=== PATIENT | female | born 1960 | race African-American/Black ===

== ENCOUNTER 2017-01-27 11:44 | Emergency (ER) | payer MEDICAID ==
[~2017-01-27] VITALS: Ht 180.3 cm; Wt 142.9 kg
[~2017-01-27 11:44] MED LIST: ATIVAN1 MG ORAL; ATIVAN2 MG/ML IV; BACTRIM DS TAB1 EAC1 ORAL; CEPHALEXIN500 M1 ORAL; CIPROFLOXACIN500 M2 ORAL; CROMOLYN SODIUM10 ML BOTH EYES; DEPAKOTE ER250 MG ORAL; DIVALPROEX SOD500 M2 ORAL; DIVALPROEX SOD500 MG; DUONEB 0.5-3(2.53 ML HHN; HEPARIN SO5000 UNIT2 SUBQ; KEPPRA XR750 MG ORAL; KEPPRA500 M3 ORAL; KEPPRA500 MG ORAL; KLONOPIN0.5 MG ORAL; LEVETIRACETAM1000 MG ORAL; LEVOTHYROXINE100 MCG ORAL; LEVOTHYROXINE25 MCG ORAL; LEVOTHYROXINE50 MCG; LEVOTHYROXINE88 MCG ORAL; MIRALAX17 GM ORAL; MULTIVITAMINS1 EAC2 ORAL; Patient Own Medication ORAL; QUETIAPINE FUMA25 MG ORAL; RANITIDINE HCL150 MG ORAL; SERTRALINE HCL25 MG ORAL; SYNTHROID75 MCG; SYNTHROID88 MCG ORAL; TRAZODONE HCL150 MG ORAL; TYLENOL EXTRA500 MG ORAL; VIMPAT150 MG PO; ZOLPIDEM TARTRA10 MG ORAL; ZOLPIDEM TARTRAT5 MG
[2017-01-27 11:45] VITALS: BP 141/81
--- NOTE | 2017-01-27 12:30 | Emergency Room Report ---
History of Present Illness General Chief Complaint: Seizure Source: Patient, EMS Present Illness HPI 48-year-old female history of seizures presenting with seizure. EMS reports that patient was in parking LOC, noted to have "focal" seizures, However no other history able to be obtained. Patient states that she last took her temperature this morning. Patient states that she is on Keppra however was told not to take valproic acid anymore. She is otherwise been compliant with her medications. States that she's been eating drinking normally. No chest pain shortness of breath nausea vomiting. Patient states her last seizure was about 2 months ago. Patient has been to the emergency room multiple times before for seizures Bit her tongue, no urinary or fecal incontinence Allergies: Coded Allergies: ASPIRIN (Unverified Allergy, Unknown, 07/31/14) NO KNOWN DRUG ALLERGIES (Unverified Allergy, Unknown, 11/24/14) Patient History Past Medical History: see triage record Past Surgical History: none Pertinent Family History: none Last Menstrual Period: na Reviewed Nursing Documentation: PMH: Agreed, PSxH: Agreed Nursing Documentation-PMH Past Medical History: No History, Except For Hx Cardiac Problems: No Hx Pacemaker: No - HYPOTHYROIDSM Hx Cancer: No Hx Gastrointestinal Problems: No Hx Neurological Problems: Yes Hx Seizures: Yes Review of Systems All Other Systems: negative except mentioned in HPI Physical Exam Vital Signs Date Time Temp Pulse Resp B/P (MAP) Pulse Ox O2 Delivery O2 Flow Rate FiO2 01/27/17 11:35 98.8 81 18 141/81 98 Room Air Sp02 EP Interpretation: reviewed, normal General Appearance: normal inspection, well appearing, no apparent distress, alert, GCS 15, non-toxic Head: normocephalic, atraumatic Eyes: bilateral eye normal inspection, bilateral eye PERRL, bilateral eye EOMI ENT: normal pharynx, normal voice, moist mucus membranes, other - +tongue bite Neck: normal inspection, full range of motion, supple Respiratory: normal inspection, lungs clear, normal breath sounds, no respiratory distress, no retraction, no wheezing, speaking full sentences, chest symmetrical Cardiovascular #1: normal inspection, regular rate, rhythm, no edema, normal capillary refill Cardiovascular #2: 2+ radial (R), 2+ radial (L) Gastrointestinal: normal inspection, non tender, soft, non-distended, no guarding Musculoskeletal: normal inspection, back normal, normal range of motion, non- tender Neurologic: normal inspection, alert, oriented x3, responsive, 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 dehydration vs. medication non compliance Electrolyte disturbance: hypoglycemia vs. hyponatremia vs. hypocalcemia vs. hypomagnesemia Cardiac: Arrythmia/acs Intracranial pathology: intracranial bleed, stroke Tox Plan: BGM EKG Labs, seizure medication levels, tox labs ER course: No further seizures in ED Has been stable during ED stay. AOx4, no neurological signs or symptoms received her dose of keppra in eD Disposition: Patient will be discharged to home. Patient instructed to be compliant with anti seizure medications Patient is to follow up with their primary care doctor in 5 days and neurologist within 1 week. Strict return precautions discussed such as severe headache, fever, chills, neck pain, prolonged or increased frequency of seizures. Patient verbalized understanding and agrees with plan. EKG Diagnostic Results EP Interpretation: Yes Rate: normal Rhythm: NSR ST Segments: No acute changes ASA given to patient: no Rhythm Strip EP Interpretation: Yes Rate: 65 Rhythm: NSR, no PVCs, no ectopy Chest X-ray CXR: Ordered: Yes 1 view Indication: Altered mental status EP interpretation: Yes Interpretation: No consolidation, no effusion, no PTX, no acute cardiopulmonary disease Impression: No acute disease Electronically signed by Mila Cosby MD Laboratory Tests Test 01/27/17 13:35 01/27/17 15:00 White Blood Count 6.0 K/UL (4.8-10.8) Red Blood Count 4.08 M/UL (4.20-5.40) L Hemoglobin 12.0 G/DL (12.0-16.0) Hematocrit 37.8 % (37.0-47.0) Mean Corpuscular Volume 92 FL (80-99) Mean Corpuscular Hemoglobin 29.4 PG (27.0-31.0) Mean Corpuscular Hemoglobin Concent 31.8 G/DL (32.0-36.0) L Red Cell Distribution Width 13.2 % (11.6-14.8) Platelet Count 242 K/UL (150-450) Mean Platelet Volume 7.4 FL (6.5-10.1) Neutrophils (%) (Auto) 66.3 % (45.0-75.0) Lymphocytes (%) (Auto) 21.1 % (20.0-45.0) Monocytes (%) (Auto) 9.2 % (1.0-10.0) Eosinophils (%) (Auto) 2.5 % (0.0-3.0) Basophils (%) (Auto) 1.0 % (0.0-2.0) Sodium Level 139 MMOL/L (136-145) Potassium Level 3.9 MMOL/L (3.5-5.1) Chloride Level 106 MMOL/L (98-107) Carbon Dioxide Level 25 MMOL/L (21-32) Anion Gap 9 mmol/L (5-15) Blood Urea Nitrogen 13 mg/dL (7-18) Creatinine 0.9 MG/DL (0.55-1.30) Estimate Glomerular Filtration Rate > 60 mL/min (>60) Glucose Level 96 MG/DL (74-106) Calcium Level 9.4 MG/DL (8.5-10.1) Total Bilirubin 0.2 MG/DL (0.2-1.0) Aspartate Amino Transferase (AST) 19 U/L (15-37) Alanine Aminotransferase (ALT) 23 U/L (12-78) Alkaline Phosphatase 88 U/L (46-116) Total Creatine Kinase 79 U/L (26-308) Troponin I 0.005 ng/mL (0.000-0.056) Total Protein 7.6 G/DL (6.4-8.2) Albumin 3.5 G/DL (3.4-5.0) Globulin 4.1 g/dL Albumin/Globulin Ratio 0.9 (1.0-2.7) L Valproic Acid Level < 3 MCG/ML (50-100) L Urine Color Pale yellow Urine Appearance Clear Urine pH 6 (4.5-8.0) Urine Specific [place] 1.015 (1.005-1.035) Urine Protein Negative (NEGATIVE) Urine Glucose (UA) Negative (NEGATIVE) Urine Ketones Negative (NEGATIVE) Urine Occult Blood 1+ (NEGATIVE) H Urine Nitrite Negative (NEGATIVE) Urine Bilirubin Negative (NEGATIVE) Urine Urobilinogen Normal MG/DL (0.0-1.0) Urine Leukocyte Esterase Negative (NEGATIVE) Urine RBC 0-2 /HPF (0 - 2) Urine WBC 0-2 /HPF (0 - 2) Urine Squamous Epithelial Cells Few /LPF (NONE/OCC) Urine Bacteria Few /HPF (NONE) Laboratory Tests Test 01/27/17 13:35 White Blood Count 6.0 K/UL (4.8-10.8) Red Blood Count 4.08 M/UL (4.20-5.40) L Hemoglobin 12.0 G/DL (12.0-16.0) Hematocrit 37.8 % (37.0-47.0) Mean Corpuscular Volume 92 FL (80-99) Mean Corpuscular Hemoglobin 29.4 PG (27.0-31.0) Mean Corpuscular Hemoglobin Concent 31.8 G/DL (32.0-36.0) L Red Cell Distribution Width 13.2 % (11.6-14.8) Platelet Count 242 K/UL (150-450) Mean Platelet Volume 7.4 FL (6.5-10.1) Neutrophils (%) (Auto) 66.3 % (45.0-75.0) Lymphocytes (%) (Auto) 21.1 % (20.0-45.0) Monocytes (%) (Auto) 9.2 % (1.0-10.0) Eosinophils (%) (Auto) 2.5 % (0.0-3.0) Basophils (%) (Auto) 1.0 % (0.0-2.0) Sodium Level 139 MMOL/L (136-145) Potassium Level 3.9 MMOL/L (3.5-5.1) Chloride Level 106 MMOL/L (98-107) Carbon Dioxide Level 25 MMOL/L (21-32) Anion Gap 9 mmol/L (5-15) Blood Urea Nitrogen 13 mg/dL (7-18) Creatinine 0.9 MG/DL (0.55-1.30) Estimate Glomerular Filtration Rate > 60 mL/min (>60) Glucose Level 96 MG/DL (74-106) Calcium Level 9.4 MG/DL (8.5-10.1) Total Bilirubin 0.2 MG/DL (0.2-1.0) Aspartate Amino Transferase (AST) 19 U/L (15-37) Alanine Aminotransferase (ALT) 23 U/L (12-78) Alkaline Phosphatase 88 U/L (46-116) Total Creatine Kinase 79 U/L (26-308) Troponin I 0.005 ng/mL (0.000-0.056) Total Protein 7.6 G/DL (6.4-8.2) Albumin 3.5 G/DL (3.4-5.0) Globulin 4.1 g/dL Albumin/Globulin Ratio 0.9 (1.0-2.7) L Valproic Acid Level < 3 MCG/ML (50-100) L Last Vital Signs Date Time Temp Pulse Resp B/P (MAP) Pulse Ox O2 Delivery O2 Flow Rate FiO2 01/27/17 11:45 63 24 Room Air 01/27/17 11:45 98.8 141/81 98 Disposition: HOME, SELF-CARE Condition: Improved Referrals: NON PHYSICIAN (PCP) Mila Cosby M.D. Jan 27, 2017 12:30
[2017-01-27] MEDS ORDERED: levETIRAcetam 500mg vial IV ONE (12:44)
[2017-01-27] MEDS ORDERED: levETIRAcetam 1,500 MG in D5W 95 ML IVPB ONE (12:45)
--- NOTE | 2017-01-27 13:08 | Diagnostic Imaging Report ---
Indication: Chest pain Technique: One view of the chest Comparison: 11/24/2014 Findings: The heart is borderline enlarged. This is a new finding. Lungs and pleural spaces are clear. Impression: Borderline cardiomegaly No acute process
[2017-01-27 13:52] LABS: EOSINOPHILS % (AUTO) 2.5 % (0.0-3.0); LYMPHOCYTES % (AUTO) 21.1 % (20.0-45.0); MEAN CORPUSCULAR HEMOGLOBIN 29.4 PG (27.0-31.0); MEAN CORPUSCULAR HGB CONC 31.8 G/DL (32.0-36.0); MEAN CORPUSCULAR VOLUME 92 FL (80-99); MEAN PLATELET VOLUME 7.4 FL (6.5-10.1); MONOCYTES % (AUTO) 9.2 % (1.0-10.0); NEUTROPHILS % (AUTO) 66.3 % (45.0-75.0); PLATELET COUNT 242 K/UL (150-450); RED BLOOD COUNT 4.08 M/UL (4.20-5.40); RED CELL DISTRIBUTION WIDTH 13.2 % (11.6-14.8)
[2017-01-27 14:08] LABS: ALANINE AMINOTRANSFERASE 23 U/L (12-78); ALBUMIN/GLOBULIN RATIO 0.9 (1.0-2.7); ANION GAP 9 mmol/L (5-15); ASPARTATE AMINO TRANSFERASE 19 U/L (15-37); CALCIUM 9.4 MG/DL (8.5-10.1); CARBON DIOXIDE 25 MMOL/L (21-32); CHLORIDE 106 MMOL/L (98-107); CREATININE 0.9 MG/DL (0.55-1.30); GLOMERULAR FILTRATION RATE > 60 mL/min (>60); POTASSIUM 3.9 MMOL/L (3.5-5.1); SODIUM 139 MMOL/L (136-145); TOTAL PROTEIN 7.6 G/DL (6.4-8.2)
[2017-01-27 14:10] LABS: VALPROIC ACID < 3 MCG/ML (50-100)
[2017-01-27 14:30] VITALS: BP 141/90
[2017-01-27 15:28] LABS: APPEARANCE,URINE CLEAR; KETONES,URINE NEGATIVE (NEGATIVE); LEUKOCYTE ESTERASE ,URINE NEGATIVE (NEGATIVE); NITRITE,URINE NEGATIVE (NEGATIVE); PH,URINE 6 (4.5-8.0); PROTEIN,URINE NEGATIVE (NEGATIVE); UROBILINOGEN,URINE NORMAL MG/DL (0.0-1.0)
[2017-01-27 15:51] LABS: RBC,URINE 0-2 /HPF (0 - 2); WBC,URINE 0-2 /HPF (0 - 2)
[2017-01-27 15:52] LABS: BACTERIA,URINE FEW /HPF; SQUAMOUS EPITHELIAL CELL,UR FEW /LPF (NONE/OCC)
[2017-01-27 16:17] VITALS: BP 153/97
[2017-01-27 19:00] VITALS: BP 153/93
--- NOTE | 2017-01-29 13:31 | Cardiology Report ---
APPROVED REPORT EKG Measurement Heart [id number] Normal sinus rhythm Normal ECG
== END 2017-01-27 19:00 | disposition home or self-care (01) ==
LOC: EDBD 11:44 → EMR 12:15
DX: G40.909 Epilepsy, unspecified, not intractable, without status epilepticus (principal); E03.9 Hypothyroidism, unspecified; Z79.899 Other long term (current) drug therapy; Z88.6 Allergy status to analgesic agent
CPT/HCPCS: 36415; 71010; 80053; 80164; 81003; 82550; 84484; 85025; 93005; 96365; 99284; J1953

== ENCOUNTER 2017-09-18 13:26 | Emergency (ER) | payer MEDICAID, OTHER ==
[~2017-09-18] VITALS: Ht 180.3 cm; Wt 147.4 kg
[2017-09-18 13:46] VITALS: BP 110/50
[2017-09-18] MEDS ORDERED: Acetaminophen 500mg (ES) tab ORAL ONE (14:30)
--- NOTE | 2017-09-18 15:17 | Diagnostic Imaging Report ---
EXAM: CT Head Without Intravenous Contrast CLINICAL HISTORY: Seizure TECHNIQUE: Axial computed tomography images of the head/brain without intravenous contrast. CTDI is 70.53 mGy and DLP is 1298 mGy-cm. One or more of the following dose reduction techniques were used: automated exposure control, adjustment of the mA and/or kV according to patient size, use of iterative reconstruction technique. COMPARISON: CT head dated 09/11/14 FINDINGS: Brain: Unremarkable. No evidence of acute intracranial hemorrhage. No significant white matter disease. No edema. No mass effect or midline shift. Ventricles: Unremarkable. No ventriculomegaly. Bones/joints: Unremarkable. No acute fracture. Soft tissues: Unremarkable. Sinuses: Unremarkable as visualized. No acute sinusitis. Mastoid air cells: Unremarkable as visualized. No mastoid effusion. IMPRESSION: Unremarkable noncontrast CT of the head/brain.
[2017-09-18 15:18] LABS: APPEARANCE,URINE CLEAR; BILIRUBIN, URINE NEGATIVE (NEGATIVE); GLUCOSE, URINE (UA) NEGATIVE (NEGATIVE); KETONES,URINE NEGATIVE (NEGATIVE); LEUKOCYTE ESTERASE ,URINE 1+ (NEGATIVE); NITRITE,URINE NEGATIVE (NEGATIVE); PH,URINE 6.5 (4.5-8.0); PROTEIN,URINE 1+ (NEGATIVE); UROBILINOGEN,URINE 1 MG/DL (0.0-1.0)
--- NOTE | 2017-09-18 15:18 | Diagnostic Imaging Report ---
EXAM: XR Chest, 1 View CLINICAL HISTORY: COUGH TECHNIQUE: Frontal view of the chest. COMPARISON: Chest x-ray dated 01/27/17 FINDINGS: Lungs: Unremarkable. The lungs appear clear. No confluent pulmonary opacities. Pleural space: Unremarkable. No pneumothorax. Heart: Unremarkable. No cardiomegaly. Mediastinum: Unremarkable. Bones/joints: Unremarkable. IMPRESSION: Unremarkable chest x-ray.
[2017-09-18 15:24] LABS: COLOR,URINE YELLOW
[2017-09-18 15:27] LABS: BASOPHILS % (AUTO) 0.8 % (0.0-2.0); EOSINOPHILS % (AUTO) 1.9 % (0.0-3.0); HEMATOCRIT 40.6 % (37.0-47.0); HEMOGLOBIN 12.7 G/DL (12.0-16.0); LYMPHOCYTES % (AUTO) 30.6 % (20.0-45.0); MEAN CORPUSCULAR VOLUME 88 FL (80-99); MONOCYTES % (AUTO) 8.8 % (1.0-10.0); NEUTROPHILS % (AUTO) 57.9 % (45.0-75.0); PLATELET COUNT 261 K/UL (150-450); RED BLOOD COUNT 4.64 M/UL (4.20-5.40); RED CELL DISTRIBUTION WIDTH 12.8 % (11.6-14.8); WHITE BLOOD COUNT 5.9 K/UL (4.8-10.8)
--- NOTE | 2017-09-18 15:29 | Emergency Room Report ---
History of Present Illness General Chief Complaint: Pain Source: Medical Record, EMS Present Illness HPI 57-year-old female patient presents to ER brought [facility] for cough and generalized bodyaches. 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 Denies cardiovascular history. Reports no recent seizure. Patient has a history of schizophrenia. Patient currently being treated with Keppra for seizures. Patient reports that she had 2 seizures and has chest pain earlier today, reports mild symptom improvement since that time. Patient is a poor historian. Denies fever, shortness of breath, abdominal pain. denies history of cancer or immobilization. denies calf or neck pain. Allergies: Coded Allergies: ASPIRIN (Unverified Allergy, Unknown, 07/31/14) NO KNOWN DRUG ALLERGIES (Unverified Allergy, Unknown, 11/24/14) Patient History Past Medical History: see triage record Reviewed Nursing Documentation: PMH: Agreed; PSxH: Agreed Nursing Documentation-PMH Hx Pacemaker: No - HYPOTHYROIDSM Hx Cancer: No Hx Gastrointestinal Problems: No Hx Neurological Problems: Yes Hx Seizures: Yes Review of Systems All Other Systems: negative except mentioned in HPI Physical Exam Vital Signs Date Time Temp Pulse Resp B/P (MAP) Pulse Ox O2 Delivery O2 Flow Rate FiO2 09/18/17 13:16 98.4 66 18 110/50 99 Room Air 98.4 Sp02 EP Interpretation: reviewed, normal General Appearance: well appearing, no apparent distress, alert, GCS 15, non- toxic Head: normocephalic, atraumatic Eyes: bilateral eye normal inspection, bilateral eye PERRL ENT: hearing grossly normal, normal pharynx, no angioedema, normal voice, uvula midline, moist mucus membranes Neck: full range of motion, no meningismus Respiratory: lungs clear, normal breath sounds, no rhonchi, no respiratory distress, no accessory muscle use, no wheezing, speaking full sentences Cardiovascular #2: 2+ radial (R), 2+ radial (L) Gastrointestinal: non tender, soft, no mass, non-distended, no guarding, no rebound Musculoskeletal: back normal, digits/nails normal, gait/station normal, normal range of motion, non-tender, no calf tenderness, Ivet's Sign negative Neurologic: alert, oriented x3, responsive, motor strength/tone normal, sensory intact Psychiatric: mood/affect normal Lymphatic: no adenopathy Medical Decision Making PA Attestation Dr. Moe is my supervising Physician whom patient management has been discussed with. Diagnostic Impression: Primary Impression: Cough ER Course Pt. presents to the ED c/o cough and possible seizure BIB ambulance. Ddx considered but are not limited to seizure disorder, drug intoxication, [place], arrhythmia. Began workup for seizure disorder. Order labs and IV fluids. Ivet sign negative, low suspicion for PE for the Well's criteria. Vital signs: are WNL, pt. is afebrile ED COURSE: UA negative for nitrites, low suspicion for UTI. Does not require antibiotic treatment at this time. UDS positive for benzos, patient currently taking lorazepam, likely resulting in positive result. remainder of urine drug screen negative. Acetaminophen not elevated Levetiracetam results sent out. CBC and CMP unremarkable Troponin negative EKG negative for ST elevations or arrhythmia Chest x-ray negative for acute disease CT head negative x-ray, EKG and labs did not indicate any cardiac pathology at this time, chest pain likely related to patient complaining of cough. Low suspicion for PE per well's criteria at this time, patient okay for discharge home we'll provide patient with Tylenol for pain symptoms. patient observed by nurse stating "I have having a seizure". 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 do not believe patient had seizure, patient stable at this time , no focal neuro deficits, talking without difficulty. patient stable for discharge to home. Patient informed must take medications to prevent seizure episodes. Patient instructed to follow up with neurologist for further treatment and assessment. Patient states understanding and agreement to treatment plan. Patient is at baseline mental status, able to ambulate and in no acute distress , hemodynamically stable. Patient is stable for discharge home. DISCHARGE: Rx provided for Tylenol for pain At this time pt is stable for d/c to home. Patient is resting comfortably, in no acute distress, nontoxic appearing, talking without difficulty. Patient to take medications as instructed Will provide with patient care instructions and any necessary prescriptions. Care plan and follow-up instructions provided. Patient instructed to follow-up with primary care provider in 3 - 5 days. Patient questions asked and answered. Patient reports understanding and agreement to treatment plan. ER precautions given. Patient instructed to return to ER immediately for any new or worsening of symptoms including but not limited to increasing SOB, persistent fever. - Please note that this Emergency Department Report was dictated using [employer] quality assurance analyst technology software, occasionally this can lead to erroneous entry secondary to interpretation by the dictation equipment. EKG Diagnostic Results Rate: normal Rhythm: NSR ST Segments: no acute changes PA Scribe Mumtaz Tanner PA-C Rhythm Strip Diag. Results EP Interpretation: yes Rate: 63 Rhythm: NSR, no PVC's, no ectopy PA Scribe Text Robb Tanner PA-C Chest X-Ray Diagnostic Results Chest X-Ray Diagnostic Results : Chest X-Ray Ordered: Yes # of Views/Limited/Complete: 1 View Indication: Chest Pain EP Interpretation: Yes PA Xray: Interpretation reviewed, by supervising MD, and agrees with findings. Interpretation: no consolidation, no effusion, no pneumothorax, no acute cardiopulmonary disease Impression: No acute disease DAVID Scribe Mumtaz Tanner PA-C CT/MRI/US Diagnostic Results CT/MRI/US Diagnostic Results : Imaging Test Ordered: CT head Impression Unremarkable noncontrast CT of the head/brain. Last Vital Signs Date Time Temp Pulse Resp B/P (MAP) Pulse Ox O2 Delivery O2 Flow Rate FiO2 09/18/17 14:31 98.4 09/18/17 13:46 74 18 110/50 99 Room Air Disposition: HOME, SELF-CARE Condition: Stable Scripts Acetaminophen* (TYLENOL EXTRA STRENGTH*) 500 Mg Tablet 500 MG ORAL Q8H PRN for Prn Headache/Temp > 101, #30 TAB 0 Refills Prov: Arben Tanner 09/18/17 Patient Instructions: Cough, Adult, [id number] Additional Instructions: Followup with primary care provider in 3 -5 days. Follow-up with neurologist and mental health individual. Take medications as directed. Patient questions asked and answered. ER precautions given, patient instructed to return to ER immediately for any new or worsening of symptoms. Arben Tanner Sep 18, 2017 15:29
[2017-09-18 15:57] LABS: ANION GAP 6 mmol/L (5-15); BLOOD UREA NITROGEN 14 mg/dL (7-18); CALCIUM 9.2 MG/DL (8.5-10.1); CARBON DIOXIDE 29 MMOL/L (21-32); CHLORIDE 105 MMOL/L (98-107); CREATININE 1.1 MG/DL (0.55-1.30); POTASSIUM 3.8 MMOL/L (3.5-5.1); SODIUM 140 MMOL/L (136-145)
[2017-09-18 16:01] LABS: ALANINE AMINOTRANSFERASE 23 U/L (12-78); ALBUMIN 3.6 G/DL (3.4-5.0); ALBUMIN/GLOBULIN RATIO 0.8 (1.0-2.7); ALKALINE PHOSPHATASE 98 U/L (46-116); ASPARTATE AMINO TRANSFERASE 20 U/L (15-37); BILIRUBIN,TOTAL 0.2 MG/DL (0.2-1.0)
[2017-09-18] MEDS ORDERED: TYLENOL EXTRA500 MG ORAL (16:31)
[2017-09-18 16:40] VITALS: BP 112/60
[2017-09-18 17:18] VITALS: BP 112/60
--- NOTE | 2017-09-22 15:26 | Cardiology Report ---
APPROVED REPORT EKG Measurement Heart [id number] Normal sinus rhythm Normal ECG
== END 2017-09-18 17:22 | disposition home or self-care (01) ==
LOC: EDBD 13:26 → EMR 14:00
DX: R05 Cough (principal); R52 Pain, unspecified; R56.9 Unspecified convulsions; E11.9 Type 2 diabetes mellitus without complications; F20.9 Schizophrenia, unspecified; Z88.6 Allergy status to analgesic agent
CPT/HCPCS: 36415; 70450; 71045; 80053; 80299; 80307; 80329; 81003; 84484; 85025; 93005; 99284

== ENCOUNTER 2017-12-28 15:13 | Emergency (ER) | payer MEDICAID ==
[~2017-12-28] VITALS: Ht 180.3 cm; Wt 136.1 kg
[2017-12-28 15:23] VITALS: BP 111/69
[2017-12-28] MEDS ORDERED: Sodium Chloride 500ML 500 ML IV ONE (15:27)
[2017-12-28] MEDS ORDERED: levETIRAcetam 500 MG in D5W 110 ML IV ONE (15:30)
[2017-12-28] MEDS ORDERED: Valproate Sodium INJ 500 MG in NS 55 ML IV ONE (15:30)
[2017-12-28] MEDS ORDERED: LORazepam Inj 2mg/ml 1ml IV ONE ×2 (15:30)
--- NOTE | 2017-12-28 15:55 | Emergency Room Report ---
History of Present Illness General Chief Complaint: Multiple Trauma/Fall Source: Patient Present Illness HPI Patient presents emergency department today status post seizure. Patient has a history of seizures and takes Keppra and Depakote. Patient states that she's compliant with medications. Patient had a seizure today she when she fell backwards hitting her hip as well as her head. She denies loss consciousness. She complains a headache and hip pain. She has difficulty ambulating because of the pain. She also complains generalized weakness. No other complaint or noted. Symptoms noted to be severe. And occurred shortly prior to arrival. 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 No other associated signs and symptoms. No other complaints were noted. Allergies: Coded Allergies: ASPIRIN (Unverified Allergy, Unknown, 07/31/14) NO KNOWN DRUG ALLERGIES (Unverified Allergy, Unknown, 11/24/14) Patient History Past Medical History: seizures Past Surgical History: none Pertinent Family History: none Social History: Denies: smoking, alcohol use, drug use Now: No Reviewed Nursing Documentation: PMH: Agreed; PSxH: Agreed Nursing Documentation-PMH Past Medical History: No History, Except For Hx Pacemaker: No - HYPOTHYROIDSM Hx Cancer: No Hx Gastrointestinal Problems: No History Of Psychiatric Problem: Yes - Schizo affective Hx Neurological Problems: Yes Hx Seizures: Yes Review of Systems All Other Systems: negative except mentioned in HPI Physical Exam Vital Signs Date Time Temp Pulse Resp B/P (MAP) Pulse Ox O2 Delivery O2 Flow Rate FiO2 12/28/17 15:08 98.4 77 21 113/76 100 Room Air 98.4 Sp02 EP Interpretation: reviewed, normal General Appearance: normal inspection, well appearing, no apparent distress, alert Head: atraumatic Eyes: bilateral eye normal inspection ENT: normal ENT inspection, hearing grossly normal, normal voice Neck: normal inspection, full range of motion, supple, no bony tend Respiratory: normal inspection, lungs clear, normal breath sounds, no respiratory distress, no retraction, no wheezing Cardiovascular #1: regular rate, rhythm, no edema Gastrointestinal: normal inspection, normal bowel sounds, non tender, soft, no guarding, no hernia Genitourinary: no CVA tenderness Musculoskeletal: tender - Bilateral hip, pain limited range of motion Neurologic: normal inspection, alert, responsive, speech normal Psychiatric: normal inspection, judgement/insight normal, depressed affect Skin: normal inspection, normal color, no rash Medical Decision Making Diagnostic Impression: Primary Impression: Seizure disorder, generalized convulsive, intractable Additional Impression: Fall ER Course Patient presents emergency department today complaining of seizure headache and weakness. Differential considerations include recurrent seizures, medication noncompliance, intracranial hemorrhage, cranial tumor just to name a few. Given the severity of the patient's presentation I felt this is a highly complex patient. This patient required extensive workup. Patient's laboratory workup was within normal limits. Patient's CAT scan was also negative. Patient had a lapse of consciousness. Therefore patient is at risk of hurting himself or others while she drives. Patient was informed of this. 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 Patient was advised to not drive because of her seizures until cleared by neurology.. Given the patient does not drive has a history of seizures and already has lapse of consciousness in the past. This is not a new encounter and will not file a lapse consciousness reported. Patient was monitored in emergency department until she became more conscious. When patient was stable patient was discharged.Patient is advised to follow up with primary doctor in 2-3 days and return the emergency room for any worsening symptoms and as needed. Labs Test 12/28/17 15:40 12/28/17 17:07 White Blood Count 5.0 K/UL (4.8-10.8) Red Blood Count 4.16 M/UL (4.20-5.40) Hemoglobin 12.6 G/DL (12.0-16.0) Hematocrit 37.0 % (37.0-47.0) Mean Corpuscular Volume 89 FL (80-99) Mean Corpuscular Hemoglobin 30.2 PG (27.0-31.0) Mean Corpuscular Hemoglobin Concent 34.0 G/DL (32.0-36.0) Red Cell Distribution Width 13.4 % (11.6-14.8) Platelet Count 232 K/UL (150-450) Mean Platelet Volume 7.2 FL (6.5-10.1) Neutrophils (%) (Auto) 52.5 % (45.0-75.0) Lymphocytes (%) (Auto) 32.8 % (20.0-45.0) Monocytes (%) (Auto) 10.1 % (1.0-10.0) Eosinophils (%) (Auto) 3.5 % (0.0-3.0) Basophils (%) (Auto) 1.1 % (0.0-2.0) Sodium Level 140 MMOL/L (136-145) Potassium Level 3.4 MMOL/L (3.5-5.1) Chloride Level 109 MMOL/L (98-107) Carbon Dioxide Level 22 MMOL/L (21-32) Anion Gap 9 mmol/L (5-15) Blood Urea Nitrogen 13 mg/dL (7-18) Creatinine 1.2 MG/DL (0.55-1.30) Estimat Glomerular Filtration Rate 55.8 mL/min (>60) Glucose Level 111 MG/DL (74-106) Calcium Level 9.1 MG/DL (8.5-10.1) Total Bilirubin 0.2 MG/DL (0.2-1.0) Aspartate Amino Transf (AST/SGOT) 14 U/L (15-37) Alanine Aminotransferase (ALT/SGPT) 19 U/L (12-78) Alkaline Phosphatase 102 U/L (46-116) Troponin I 0.000 ng/mL (0.000-0.056) Total Protein 7.6 G/DL (6.4-8.2) Albumin 3.2 G/DL (3.4-5.0) Globulin 4.4 g/dL Albumin/Globulin Ratio 0.7 (1.0-2.7) Valproic Acid (Depakene) Level < 3 MCG/ML (50-100) Urine Color Yellow Urine Appearance Clear Urine pH 6 (4.5-8.0) Urine Specific [place] 1.005 (1.005-1.035) Urine Protein Negative (NEGATIVE) Urine Glucose (UA) Negative (NEGATIVE) Urine Ketones Negative (NEGATIVE) Urine Blood 1+ (NEGATIVE) Urine Nitrite Negative (NEGATIVE) Urine Bilirubin Negative (NEGATIVE) Urine Urobilinogen Normal MG/DL (0.0-1.0) Urine Leukocyte Esterase Negative (NEGATIVE) Urine RBC 5-10 /HPF (0 - 2) Urine WBC 0-2 /HPF (0 - 2) Urine Squamous Epithelial Cells Moderate /LPF (NONE/OCC) Urine Bacteria Few /HPF (NONE) EKG Diagnostic Results Rate: normal Rhythm: NSR ST Segments: no acute changes Rhythm Strip Diag. Results EP Interpretation: yes Rate: 70 Rhythm: NSR, no PVC's, no ectopy CT/MRI/US Diagnostic Results CT/MRI/US Diagnostic Results : Imaging Test Ordered: CT head: Negative Last Vital Signs Date Time Temp Pulse Resp B/P (MAP) Pulse Ox O2 Delivery O2 Flow Rate FiO2 12/28/17 15:08 98.4 77 21 113/76 100 Room Air 98.4 Status: improved Disposition: HOME, SELF-CARE Condition: Stable Willian De Luna MD Dec 28, 2017 15:55
[2017-12-28 16:25] LABS: BASOPHILS % (AUTO) 1.1 % (0.0-2.0); EOSINOPHILS % (AUTO) 3.5 % (0.0-3.0); HEMOGLOBIN 12.6 G/DL (12.0-16.0); LYMPHOCYTES % (AUTO) 32.8 % (20.0-45.0); MEAN CORPUSCULAR VOLUME 89 FL (80-99); MONOCYTES % (AUTO) 10.1 % (1.0-10.0); NEUTROPHILS % (AUTO) 52.5 % (45.0-75.0); PLATELET COUNT 232 K/UL (150-450); RED BLOOD COUNT 4.16 M/UL (4.20-5.40); RED CELL DISTRIBUTION WIDTH 13.4 % (11.6-14.8)
[2017-12-28 16:26] LABS: ANION GAP 9 mmol/L (5-15); BLOOD UREA NITROGEN 13 mg/dL (7-18); CALCIUM 9.1 MG/DL (8.5-10.1); CARBON DIOXIDE 22 MMOL/L (21-32); CHLORIDE 109 MMOL/L (98-107); CREATININE 1.2 MG/DL (0.55-1.30); POTASSIUM 3.4 MMOL/L (3.5-5.1); SODIUM 140 MMOL/L (136-145)
[2017-12-28 16:31] LABS: ALANINE AMINOTRANSFERASE 19 U/L (12-78); ALBUMIN 3.2 G/DL (3.4-5.0); ALBUMIN/GLOBULIN RATIO 0.7 (1.0-2.7); ALKALINE PHOSPHATASE 102 U/L (46-116); ASPARTATE AMINO TRANSFERASE 14 U/L (15-37); BILIRUBIN,TOTAL 0.2 MG/DL (0.2-1.0)
[2017-12-28 17:38] LABS: APPEARANCE,URINE CLEAR; BILIRUBIN, URINE NEGATIVE (NEGATIVE); COLOR,URINE YELLOW; GLUCOSE, URINE (UA) NEGATIVE (NEGATIVE); KETONES,URINE NEGATIVE (NEGATIVE); LEUKOCYTE ESTERASE ,URINE NEGATIVE (NEGATIVE); NITRITE,URINE NEGATIVE (NEGATIVE); PH,URINE 6 (4.5-8.0); PROTEIN,URINE NEGATIVE (NEGATIVE); UROBILINOGEN,URINE NORMAL MG/DL (0.0-1.0)
[2017-12-28 21:15] VITALS: BP 116/70
--- NOTE | 2017-12-29 08:47 | Diagnostic Imaging Report ---
Indication: Head trauma, pain Technique: Continuous helical CT scanning of the head was performed without intravenous contrast material. Axial and coronal 5 mm sections were generated. Radiation dose was minimized using automated exposure control Dose: Total Dose Length Product - DLP 1354.[address] Dose Index - CTDIvol(s) 70.38 mGy. Comparison: 09/18/2017 Findings: The ventricular system is normal in size and configuration. There is no shift of midline structures. No abnormal extra-axial fluid collections are noted. There is no evidence of intracerebral bleeding. No other abnormal high or low density areas are noted within the brain. Normal palomino-white differentiation. Visualized orbits are unremarkable. There is a left maxillary sinus polyp or mucous retention cyst, also evident previously. Intact calvarium. The mastoids are clear Impression: Normal CT scan of the head without contrast material. Incidental finding of left maxillary sinus mucous retention cyst versus polyp. This agrees with the preliminary interpretation provided overnight by Dr. Zheng The CT scanner at [facility] is accredited by the [employer] and the scans are performed using protocols designed to limit radiation exposure to as low as reasonably achievable to attain images of sufficient resolution adequate for diagnostic evaluation.
== END 2017-12-28 21:30 | disposition home or self-care (01) ==
LOC: EDBD 15:13 → EMR 15:44
DX: G40.909 Epilepsy, unspecified, not intractable, without status epilepticus (principal); E03.9 Hypothyroidism, unspecified; Z79.899 Other long term (current) drug therapy; F25.9 Schizoaffective disorder, unspecified; Z88.6 Allergy status to analgesic agent; M25.552 Pain in left hip; M25.551 Pain in right hip; W19.XXXA Unspecified fall, initial encounter; Y92.9 Unspecified place or not applicable
CPT/HCPCS: 36415; 70450; 80053; 80164; 81003; 82962; 84484; 85025; 93005; 96361; 96374; 96375; 99284; J1953; J7040

== ENCOUNTER 2018-08-27 15:41 | Emergency (ER) | payer MEDICAID ==
[~2018-08-27] VITALS: Ht 180.3 cm; Wt 124.7 kg
[2018-08-27] MEDS ORDERED: LORazepam Inj 2mg/ml 1ml ONE (15:42)
[2018-08-27] MEDS ORDERED: LORazepam Inj 2mg/ml 1ml IV ONE (15:45)
--- NOTE | 2018-08-27 15:45 | NUR ---
ED Nurse Note: PT HAD A SEIZURE IN AMBULANCE BAY, DR RODRIGUEZ GAVE VERBAL ORDER OF ATIVAN 1MG IVP STAT, PT HAD IV ACCESS PRIOR TO ARRIVAL, ORDER WAS FOLLOWED THROUGH. ATIVAN 1MG WASTE AND ATIVAN 1MG IVP ADMINISTRATION WITNESSED BY PRIMARY RN, SHAUN.
--- NOTE | 2018-08-27 15:46 | Emergency Room Report ---
History of Present Illness General Source: Patient, EMS Present Illness HPI Patient presents after having seizures at the assisted living facility. She is on 3 medications for seizures. The patient is unable to give history at this time. She says they dispense the medications where she lives. She is observed to be swallowing that medications on that's delivered to her. She doesn't really she' s missed any doses. The last seizure she had was many months ago. The patient complains about bilateral leg pain. She feels is related to arthritis. She's had some edema there for several months. There is no specific calf pain it's more in her knees. The patient denies nausea vomiting diarrhea or dysuria. The patient better tongue. It's not very sore right now. She's also complaining about mild headache and slight amount of neck pain. 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 She had been admitted 2014 twice for uncontrolled seizures. Allergies: Coded Allergies: ASPIRIN (Unverified Allergy, Unknown, 07/31/14) NO KNOWN DRUG ALLERGIES (Unverified Allergy, Unknown, 11/24/14) Patient History Past Medical History: see triage record Social History: Denies: smoking, alcohol use, drug use Social History Narrative assisted living Reviewed Nursing Documentation: PMH: Agreed; PSxH: Agreed Nursing Documentation-PMH Hx Cardiac Problems: No Hx Pacemaker: No - HYPOTHYROIDSM Hx Cancer: No Hx Gastrointestinal Problems: No Hx Neurological Problems: Yes Hx Seizures: Yes Review of Systems All Other Systems: negative except mentioned in HPI Physical Exam Vital Signs Date Time Temp Pulse Resp B/P (MAP) Pulse Ox O2 Delivery O2 Flow Rate FiO2 08/27/18 15:48 97.5 77 30 124/77 (93) 100 Room Air Sp02 EP Interpretation: reviewed, normal General Appearance: well appearing, no apparent distress, GCS 15 Head: normocephalic, atraumatic Eyes: bilateral eye normal inspection, bilateral eye PERRL, bilateral eye EOMI ENT: moist mucus membranes - no lingual macerations Neck: full range of motion, supple, no bony tend Respiratory: chest non-tender, lungs clear, normal breath sounds Cardiovascular #1: regular rate, rhythm, edema - trace bilat LE Cardiovascular #2: 2+ radial (R) Gastrointestinal: normal inspection, non tender, no mass, non-distended, decreased bowel sounds, overweight Genitourinary: no CVA tenderness Musculoskeletal: back normal, gait/station normal, normal range of motion, no calf tenderness, Ivet's Sign negative Neurologic: alert, oriented x3, pe manager III-XII nml as tested, motor strength/tone normal, DTRs symmetric, sensory intact, cerebellar normal, speech normal Psychiatric: depressed affect Skin: normal inspection, no rash, warm/dry Medical Decision Making Diagnostic Impression: Primary Impression: Uncontrolled seizures Qualified Codes: R56.9 - Unspecified convulsions Additional Impression: Seizure secondary to subtherapeutic anticonvulsant medication ER Course Patient had a seizure in the ambulance bay. She was brought into the treatment area and Ativan 1 mg given IV. Differential includes uncontrolled seizures, psychogenic seizures, electrolyte imbalance, noncompliance amongst others. The patient will be evaluated with EKG , chest x-ray and labs. The patient will receive Ativan 1 mg and also Keppra 500 mg. She's placed on a rn cardiac. EKG without injury. CXR no infiltrate. Labs with low depakote. Depakote given. Discussed with Dr. Bowers. Their CT scanner is down and she insists on getting a CT here. CT negative. Stable for transfer for observation. Laboratory Tests Test 08/27/18 16:29 08/27/18 16:30 Urine Color Yellow Urine Appearance Clear Urine pH 7 (4.5-8.0) Urine Specific [place] 1.010 (1.005-1.035) Urine Protein Negative (NEGATIVE) Urine Glucose (UA) Negative (NEGATIVE) Urine Ketones Negative (NEGATIVE) Urine Blood 1+ (NEGATIVE) H Urine Nitrite Negative (NEGATIVE) Urine Bilirubin Negative (NEGATIVE) Urine Urobilinogen 1 MG/DL (0.0-1.0) H Urine Leukocyte Esterase 1+ (NEGATIVE) H Urine RBC 2-4 /HPF (0 - 2) H Urine WBC 0-2 /HPF (0 - 2) Urine Squamous Epithelial Cells Few /LPF (NONE/OCC) Urine Bacteria Few /HPF (NONE) Urine Opiates Screen Negative (NEGATIVE) Urine Barbiturates Screen Negative (NEGATIVE) Phencyclidine (PCP) Screen Negative (NEGATIVE) Urine Amphetamines Screen Negative (NEGATIVE) Urine Benzodiazepines Screen Positive (NEGATIVE) H Urine Cocaine Screen Negative (NEGATIVE) Urine Marijuana (THC) Screen Negative (NEGATIVE) White Blood Count 6.3 K/UL (4.8-10.8) Red Blood Count 4.02 M/UL (4.20-5.40) L Hemoglobin 11.7 G/DL (12.0-16.0) L Hematocrit 36.2 % (37.0-47.0) L Mean Corpuscular Volume 90 FL (80-99) Mean Corpuscular Hemoglobin 29.1 PG (27.0-31.0) Mean Corpuscular Hemoglobin Concent 32.3 G/DL (32.0-36.0) Red Cell Distribution Width 13.6 % (11.6-14.8) Platelet Count 198 K/UL (150-450) Mean Platelet Volume 8.3 FL (6.5-10.1) Neutrophils (%) (Auto) 46.5 % (45.0-75.0) Lymphocytes (%) (Auto) 34.7 % (20.0-45.0) Monocytes (%) (Auto) 12.4 % (1.0-10.0) H Eosinophils (%) (Auto) 4.9 % (0.0-3.0) H Basophils (%) (Auto) 1.6 % (0.0-2.0) Sodium Level 140 MMOL/L (136-145) Potassium Level 4.0 MMOL/L (3.5-5.1) Chloride Level 108 MMOL/L (98-107) H Carbon Dioxide Level 24 MMOL/L (21-32) Anion Gap 8 mmol/L (5-15) Blood Urea Nitrogen 16 mg/dL (7-18) Creatinine 1.0 MG/DL (0.55-1.30) Estimate Glomerular Filtration Rate > 60 mL/min (>60) Glucose Level 147 MG/DL (74-106) H Calcium Level 8.9 MG/DL (8.5-10.1) Total Bilirubin 0.1 MG/DL (0.2-1.0) L Aspartate Amino Transferase (AST) 13 U/L (15-37) L Alanine Aminotransferase (ALT) 14 U/L (12-78) Alkaline Phosphatase 111 U/L (46-116) Total Creatine Kinase 73 U/L (26-308) Troponin I 0.000 ng/mL (0.000-0.056) Total Protein 7.0 G/DL (6.4-8.2) Albumin 3.1 G/DL (3.4-5.0) L Globulin 3.9 g/dL Albumin/Globulin Ratio 0.8 (1.0-2.7) L Salicylates Level 1.6 ug/mL (2.8-20) L Acetaminophen Level < 2 MCG/ML (10-30) L Valproic Acid Level 32 MCG/ML (50-100) L Serum Alcohol < 3 mg/dL EKG Diagnostic Results Rate: normal Rhythm: NSR ST Segments: no acute changes Rhythm Strip Diag. Results EP Interpretation: yes Rhythm: NSR, no PVC's, no ectopy Chest X-Ray Diagnostic Results Chest X-Ray Diagnostic Results : Chest X-Ray Ordered: Yes # of Views/Limited/Complete: 1 View Indication: Other EP Interpretation: Yes Interpretation: no consolidation, no effusion, no pneumothorax Impression: Other Electronically Signed by: Electronically signed by Kurt Mcnair MD CT/MRI/US Diagnostic Results CT/MRI/US Diagnostic Results : Imaging Test Ordered: Head Impression no IC pathology Last Vital Signs Date Time Temp Pulse Resp B/P (MAP) Pulse Ox O2 Delivery O2 Flow Rate FiO2 08/27/18 21:59 98.1 77 18 140/78 99 Room Air Status: improved Disposition: XFER SHT-TRM HOSP Condition: Serious Kurt Mcnair MD Aug 27, 2018 15:46
[2018-08-27 16:00] VITALS: BP 124/77
--- NOTE | 2018-08-27 16:00 | NUR ---
ED Nurse Note: Patient brought in to ER by ambulance from SNF after having seizure. per EMS, SNF staff found her having seizure while sitting in chair. no fall or no head injury and they don't know exactly how long the seizure had been. pt aao x4, however, pt had another generalized seizure for 20 seconds with ER staff witnessed while on gurney in ER entrance. skin clean and intact.
--- NOTE | 2018-08-27 16:05 | NUR ---
ED Nurse Note: CN received verbal order of Ativan IVP 1mg from ERMD and it was given at the bedside with assigned nurse witnessed. FC inserted and 500 cc of yellow and clear urine came out. pt tolerated with procedure well.
--- NOTE | 2018-08-27 16:14 | Diagnostic Imaging Report ---
EXAM: XR Chest, 1 View CLINICAL HISTORY: SZ TECHNIQUE: Frontal view of the chest. COMPARISON: Chest x-ray 09/18/17 FINDINGS: Lungs: Unremarkable. No consolidation. Stable mild elevated right hemidiaphragm. Pleural space: Unremarkable. No pneumothorax. Heart: Unremarkable. No cardiomegaly. Mediastinum: Unremarkable. Bones/joints: Unremarkable. IMPRESSION: No acute process.
[2018-08-27] MEDS ORDERED: levETIRAcetam 500mg/NS100ml 100 ML IVPB ONE (16:15)
--- NOTE | 2018-08-27 16:20 | NUR ---
ED Nurse Note: ERMD at bedside and received verbal order to switch Keppra from PO to IV. 1 of Keppra 500mg tab returned to pyxis.
[2018-08-27 16:43] LABS: APPEARANCE,URINE CLEAR; BILIRUBIN, URINE NEGATIVE (NEGATIVE); GLUCOSE, URINE (UA) NEGATIVE (NEGATIVE); KETONES,URINE NEGATIVE (NEGATIVE); LEUKOCYTE ESTERASE ,URINE 1+ (NEGATIVE); NITRITE,URINE NEGATIVE (NEGATIVE); PH,URINE 7 (4.5-8.0); PROTEIN,URINE NEGATIVE (NEGATIVE); UROBILINOGEN,URINE 1 MG/DL (0.0-1.0)
[2018-08-27 16:46] LABS: COLOR,URINE YELLOW
[2018-08-27 16:50] LABS: BASOPHILS % (AUTO) 1.6 % (0.0-2.0); EOSINOPHILS % (AUTO) 4.9 % (0.0-3.0); HEMATOCRIT 36.2 % (37.0-47.0); HEMOGLOBIN 11.7 G/DL (12.0-16.0); LYMPHOCYTES % (AUTO) 34.7 % (20.0-45.0); MEAN CORPUSCULAR VOLUME 90 FL (80-99); MONOCYTES % (AUTO) 12.4 % (1.0-10.0); NEUTROPHILS % (AUTO) 46.5 % (45.0-75.0); PLATELET COUNT 198 K/UL (150-450); RED BLOOD COUNT 4.02 M/UL (4.20-5.40); RED CELL DISTRIBUTION WIDTH 13.6 % (11.6-14.8); WHITE BLOOD COUNT 6.3 K/UL (4.8-10.8)
[2018-08-27 16:52] LABS: ANION GAP 8 mmol/L (5-15); BLOOD UREA NITROGEN 16 mg/dL (7-18); CALCIUM 8.9 MG/DL (8.5-10.1); CARBON DIOXIDE 24 MMOL/L (21-32); CHLORIDE 108 MMOL/L (98-107); SODIUM 140 MMOL/L (136-145)
[2018-08-27] MEDS ORDERED: KLONOPIN1 MG ORAL (16:54)
[2018-08-27] MEDS ORDERED: FAMOTIDINE20 MG ORAL (16:54)
[2018-08-27] MEDS ORDERED: VITAMIN D250000 UNI1 ORAL (16:54)
[2018-08-27] MEDS ORDERED: NAPROXEN500 M2 ORAL (16:54)
[2018-08-27] MEDS ORDERED: LATUDA80 MG PO (16:54)
[2018-08-27] MEDS ORDERED: SIMVASTATIN20 MG ORAL (16:54)
[2018-08-27] MEDS ORDERED: TOPIRAMATE25 MG ORAL (16:54)
--- NOTE | 2018-08-27 16:55 | NUR ---
ED Nurse Note: spoke to [facility] block and case maker to transfer pt to another hospital. [phone]. She will call back for updated information.
[2018-08-27 16:56] LABS: ALANINE AMINOTRANSFERASE 14 U/L (12-78); ALBUMIN 3.1 G/DL (3.4-5.0); ALBUMIN/GLOBULIN RATIO 0.8 (1.0-2.7); ALKALINE PHOSPHATASE 111 U/L (46-116); ASPARTATE AMINO TRANSFERASE 13 U/L (15-37); BILIRUBIN,TOTAL 0.1 MG/DL (0.2-1.0); CREATINE KINASE 73 U/L (26-308)
--- NOTE | 2018-08-27 17:41 | NUR ---
ED Nurse Note: pt went down to CT in stable condition.
[2018-08-27 18:00] VITALS: BP 136/92
--- NOTE | 2018-08-27 18:06 | NUR ---
ED Nurse Note: pt came back from CT in stable condition.
--- NOTE | 2018-08-27 18:34 | Diagnostic Imaging Report ---
EXAM: CT Head Without Intravenous Contrast CLINICAL HISTORY: SZ TECHNIQUE: Axial computed tomography images of the head/brain without intravenous contrast. CTDI is 70.38 mGy and DLP is 1428.65 mGy-cm. One or more of the following dose reduction techniques were used: automated exposure control, adjustment of the mA and/or kV according to patient size, use of iterative reconstruction technique. COMPARISON: CT head on 12/28/2017 FINDINGS: Brain: No acute infarct or hemorrhage. No extra-axial fluid collection. No mass effect or midline shift. Ventricles and sulci: Normal. No ventriculomegaly or intraventricular hemorrhage. Skull: Hyperostosis frontalis interna. No bony lesion or fracture. Subcutaneous tissues: Normal. Sinuses: Normal. No air-fluid levels or mucosal thickening. Mastoid air cells: Normal. Orbits: Grossly unremarkable. IMPRESSION: No acute intracranial abnormality.
--- NOTE | 2018-08-27 18:37 | NUR ---
ED Nurse Note: per ERMD, pt is ok to eat. 2 sandwiches and 2 juices provided as requested.
--- NOTE | 2018-08-27 19:05 | NUR ---
HAND-OFF: Report given to STEPHEN Herzog. we are waiting for transfer information. no order to carry at this moment.
--- NOTE | 2018-08-27 20:18 | NUR ---
ED Nurse Note: Report given to STEPHEN Rodriguez at [facility].
[2018-08-27 20:24] VITALS: BP 140/87
[2018-08-27 21:59] VITALS: BP 140/78
--- NOTE | 2018-08-27 22:06 | NUR ---
ED Nurse Note: Patient was transfered to [facility] via [facility] transportation #[id number], due to uncontroled seizures. AAO x4, VSS at this time, skin is intact, warm to touch. Patient was transfered with all belongings.
--- NOTE | 2018-09-06 14:19 | Cardiology Report ---
APPROVED REPORT EKG Measurement Heart [id number] Normal sinus rhythm Minimal voltage criteria for LVH, may be normal variant Nonspecific T wave abnormality Abnormal ECG
== END 2018-08-27 22:10 | disposition short-term general hospital (02) ==
LOC: EDBD 15:41 → EMR 16:21
DX: R56.9 Unspecified convulsions (principal); M79.605 Pain in left leg; M79.604 Pain in right leg; R60.0 Localized edema; Z88.6 Allergy status to analgesic agent; E03.9 Hypothyroidism, unspecified; R51 Headache; M54.2 Cervicalgia
CPT/HCPCS: 36415; 70450; 71045; 80053; 80164; 80307; 80329; 81003; 82550; 82962; 84484; 85025; 93005; 96374; 96375; 99284; J1953; J7040; 80299